=== PATIENT | female | born 1960 | race African-American/Black ===

== ENCOUNTER → 2023-06-23 09:18 | Outpatient (CLI) | payer MEDICARE, MEDICAID, SELFPAY | PROVIDERS: PCP Nurse Practitioner Family; Referring Provider Internal Medicine Critical Care Medicine; Visit Provider Internal Medicine Critical Care Medicine | DX: R06.02 Shortness of breath (principal); Z87.891 Personal history of nicotine dependence | CPT/HCPCS: 94060; 94726; 94729 ==

== ENCOUNTER → 2023-06-30 10:21 | Outpatient (CLI) | payer MEDICARE, MEDICAID, SELFPAY ==
--- NOTE | 2023-06-30 | DI.RAD.S_ITS ---
PROCEDURE: [place] JOINT INJECTION LARGE RT INDICATIONS: degenerative joint disease right hip COMPARISON: [facility], CT, CT CHEST WITHOUT CONTRAST, 04/06/2023, 16:54. TECHNIQUE: The patient reports history of iodine allergy. Iodinated intra-articular contrast injected was not performed. The indications, alternatives, benefits, risks, and complications of the procedure were explained to the patient. Written informed consent was obtained and placed in the chart. The patient was placed in an appropriate position on the fluoroscopy table, and a site was chosen for percutaneous access under fluoroscopic guidance. The site was prepped and draped in a sterile fashion. Local anesthetic was administered using a 1% lidocaine solution. A hypodermic or spinal needle was then used to access the symptomatic joint. Intra-articular location of the needle tip was confirmed by pressure drop with local anesthetics, followed by steroid administration. The needle was then withdrawn, and a bandage applied to the puncture site. FINDINGS: Joint injected: Right hip Medications injected: 4 mL of 40 mg/mL Kenalog and 0.5% Ropivacaine mixture. Patient's pain before injection: 5 out of 10. Patient's pain after injection: 1 out of 10. Complications: None. IMPRESSION: 1. Successful fluoroscopically guided administration of steroid and anaesthetic solution into the right hip joint. 2. Iodinated contrast was not used. The patient has history of iodine allergy. Dictated by: Sanaz Nascimento M.D. on 07/01/2023 at 14:52 Approved by: Sanaz Nascimento M.D. on 07/01/2023 at 14:55
[2023-06-30] MEDS: LIDOCAINE 1% 20 ML INJ (11:47)
[2023-06-30] MEDS: TRIAMCINOLONE 40 MG/ML VIAL INTRA-ARTI (11:47)
[2023-06-30] MEDS: ROPIVACAINE 0.5% PF 5 MG/ML 20ML VIAL 20 ML INJ (11:47)
== END ==
PROVIDERS: PCP Nurse Practitioner Family; Referring Provider Physician Assistant Surgical; Visit Provider Physician Assistant Surgical
DX: M16.11 Unilateral primary osteoarthritis, right hip (principal)
CPT/HCPCS: 20610; 77002

== ENCOUNTER → 2024-08-03 09:10 | Outpatient (CLI) | payer MEDICARE, MEDICAID, SELFPAY ==
--- NOTE | 2024-08-03 09:13 | DI.RAD.S_ITS ---
PROCEDURE: [place] JOINT INJECTION LARGE RT INDICATIONS: Right Hip Arthritis COMPARISON: [facility], , [place] JOINT INJECTION LARGE RT, 06/30/2023, 10:52. TECHNIQUE: The indications, alternatives, benefits, risks, and complications of the procedure were explained to the patient. Written informed consent was obtained and placed in the chart. The patient was placed in an appropriate position on the fluoroscopy table, and a site was chosen for percutaneous access under fluoroscopic guidance. The site was prepped and draped in a sterile fashion. Local anesthetic was administered using a 1% lidocaine solution. A hypodermic or spinal needle was then used to access the symptomatic joint. Intra-articular location of the needle tip was confirmed by injecting a small amount of lidocaine which flowed with these into the joint space. Reported contrast allergy. Contrast was not utilized. Steroid medication was instilled. The needle was then withdrawn, and a bandage applied to the puncture site. FINDINGS: Joint injected: Right hip Medications injected: 4 mL of 40 mg/mL Kenalog and 0.5% Ropivacaine mixture. Patient's pain before injection: 8 out of 10. Patient's pain after injection: 2 out of 10. Complications: None. IMPRESSION: Successful fluoroscopically guided administration of steroid and anaesthetic solution into the right hip joint. Dictated by: Gael Arguelles M.D. on 08/03/2024 at 10:43 Approved by: Gael Arguelles M.D. on 08/03/2024 at 10:44
[2024-08-03] MEDS: ROPIVACAINE 0.5% PF 5 MG/ML 20ML VIAL 20 ML INJ (10:58)
[2024-08-03] MEDS: LIDOCAINE 1% 20 ML INJ (10:58)
[2024-08-03] MEDS: TRIAMCINOLONE 40 MG/ML VIAL INTRA-ARTI (10:59)
== END ==
PROVIDERS: PCP Nurse Practitioner Family; Referring Provider Physician Assistant Surgical; Visit Provider Physician Assistant Surgical
DX: M16.11 Unilateral primary osteoarthritis, right hip (principal)
CPT/HCPCS: 20610; 77002

== ENCOUNTER → 2025-03-06 09:39 | Outpatient (CLI) | payer MEDICARE, MEDICAID, SELFPAY ==
--- NOTE | 2025-03-06 09:40 | DI.RAD.S_ITS ---
PROCEDURE: [place] JOINT INJECTION LARGE RT INDICATIONS: right hip steroid injection COMPARISON: [facility], , [place] JOINT INJECTION LARGE RT, 08/03/2024, 8:38. TECHNIQUE: The indications, alternatives, benefits, risks, and complications of the procedure were explained to the patient. Written informed consent was obtained and placed in the chart. The patient was placed in an appropriate position on the fluoroscopy table, and a site was chosen for percutaneous access under fluoroscopic guidance. The site was prepped and draped in a sterile fashion. Local anesthetic was administered using a 1% lidocaine solution. A hypodermic or spinal needle was then used to access the symptomatic joint. Intra-articular location of the needle tip was confirmed by injecting a small amount of lidocaine to test for resistance to flow. The patient is allergic to iodinated contrast. The needle was then withdrawn, and a bandage applied to the puncture site. FINDINGS: Joint injected: Right femoroacetabular joint Medications injected: 4 mL of 40 mg/mL Kenalog and 0.5% Ropivacaine mixture. Patient's pain before injection: 4 out of 10. Patient's pain after injection: 0 out of 10. Complications: None. IMPRESSION: Successful fluoroscopically guided administration of steroid and anaesthetic solution into the right femoroacetabular joint. Dictated by: Gurdeep Sanchez M.D. on 03/06/2025 at 11:43 Approved by: Gurdeep Sanchez M.D. on 03/06/2025 at 11:45
[2025-03-06] MEDS: TRIAMCINOLONE 40 MG/ML VIAL INTRA-ARTI (11:11)
[2025-03-06] MEDS: LIDOCAINE 1% 20 ML INJ (11:11)
== END ==
LOC: RAD 09:39
PROVIDERS: PCP Nurse Practitioner Family; Visit Provider Family Medicine
DX: M25.551 Pain in right hip (principal)
CPT/HCPCS: 20610; 77002